=== PATIENT | male | born 1950 | race Caucasian/White ===

== ENCOUNTER → 2017-08-24 09:41 | Outpatient (CLI) | payer MEDICARE, BC ==
[2015-11-19 06:49] VITALS: BMI 21.6
[~2017-08-24 09:41] MED LIST: BAYER CHEWABLE81 MG PO; NORCO 5/325 TAB1 TA1 PO; NORVASC10 MG PO
== END | disposition home or self-care (01) ==
LOC: D.LAB 09:41
DX: N40.0 Benign prostatic hyperplasia without lower urinary tract symptoms (principal)

== ENCOUNTER 2017-09-20 05:45 | Day surgery (SDC) | payer MEDICARE, BC ==
[2017-09-18 08:51] LABS: HEMATOCRIT 37.2 % (42.0-54.0); HEMOGLOBIN 11.9 g/dL (13.5-17.5); MCH 26.2 pg (26.0-34.0); MCV 81.8 fL (80.0-100.0); MEAN PLATELET VOLUME 9.7 fL (7.4-10.4); RBC 4.55 10x6/uL (4.20-6.10); RDW 16.4 % (11.5-14.5); WBC 5.6 10x3/uL (4.8-10.8)
--- NOTE | ~2017-09-20 | OP ---
PATIENT NAME: JERMAIN GOTTLIEB MEDICAL RECORD: [id number] :50 LOCATION:D.OPS ADMISSION DATE: SURGEON: RAJAN THOMAS MD DATE OF OPERATION: 09/20/2017 SURGEON: Rajan Thomas MD ANESTHESIA: General anesthesia by Mukesh Bishop CRNA PREOPERATIVE DIAGNOSES: 1. Right hydrocele. 2. Elevated PSA 5.5. PROCEDURE: 1. Right hydrocelectomy by Jaboulay procedure. 2. Transrectal ultrasound and prostate biopsy. FINDINGS: Large right hydrocele with 400 mL of fluid evacuated. A 45 gram prostate with intraprostatic stones, no hypoechoic areas. SPECIMENS: 1. Prostate biopsy cores. 2. Right appendix testis. 3. Right hydrocele sac. CLINICAL HISTORY: This is a 67-year-old male, who is complaining of a large right hydrocele. He had this hydrocele developed after he had a right inguinal hernia repair by Dr. Lynch in 2013. In 2015, Dr. Lynch attempted to drain the hydrocele by putting a needle into it, but the fluid, probably reaccumulated. He comes now to have the hydrocele drained. It is hanging so low that when he sits on the toilet, it dips into the toilet water, which makes it a problem for him with hygiene. He also has an elevated PSA of 5.5. He was exposed to Agent [place] during the [place]. He does not have a family history of prostate cancer. On rectal examination he has an enlarged prostate, but no nodules were palpated. He comes today to have a prostate biopsy performed also. He has been taking prophylactic antibiotics at home and he also performed a Fleet enema last night. He is allergic to PENICILLIN and he was given Levaquin 500 mg IV organizational consultant to the OR. DESCRIPTION OF PROCEDURE: The patient was initially placed in supine position on the OR table. We did the hydrocele surgery first. He was then given induction of general anesthesia. He was shaved, prepped and draped. A median rhaphe incision about 3 cm long was made. We then went down to the dartos layer using the Bovie. Using a 15 blade, we went through the tunica vaginalis and started draining the hydrocele. The Arasuer suction tip was placed into the hydrocele sac to drain most of the fluid out. Metzenbaum scissors were then used to incise the full length of the tunica vaginalis. The remaining fluid was then evacuated using the Yankauer suction. The testicle was then everted out of its hemiscrotum. A prominent right appendix testis is noted. This was amputated at its base and sent to pathology as a specimen. This is to prevent any future torsion of the appendix testis from causing testicular pain. The excessively redundant tunica vaginalis was noted. The redundancy was trimmed off using a Bovie. Enough of the tunica vaginalis was left behind, so that it could be reapproximated behind the spermatic cord. This was done using a running 3-0 Vicryl. This constitutes the Jaboulay procedure. Any bleeding OPERATIVE REPORT [id number] JERMAIN GOTTLIEB points were cauterized extensively. If they did not stop bleeding with cautery, a [id number]-[id number] of 3-0 chromic was placed across the bleeding point. When no active bleeding was noted, the right testicle was placed back into its hemiscrotum. The dartos fascia was reapproximated using 3-0 running Vicryl. A 4-0 Monocryl was then used in simple interrupted fashion to reapproximate the skin. We then placed the scrotum into a blue towel and taped it up into the abdomen as much as possible. The patient was then moved down on the operating table and placed into dorsal lithotomy position. The next step was the prostate biopsy. The transrectal ultrasound probe was placed into the rectum. We obtained prostate size measurements. The approximate size of the prostate by our machine is 45 grams, but our machine tends to underestimate the size. On digital rectal examination, I would have said that it was closer to 60 grams. No hypoechoic areas were seen. Sextant biopsies were obtained with at least 3 cores from each sextant. Once the biopsy was completed, the dressing was applied to the scrotal incision. Fluffs and mesh panties were given to him. He was then awakened and brought to the recovery room. I will see him next week to review his pathology results with him. TRANSINT:[id number] Voice Confirmation ID: [id number] DOCUMENT ID: [id number] RAJAN THOMAS MD at 1315 CC: [id number] DICTATION DATE: 09/20/17924 GOLF TOURNAMENT CONSULTANT: 09/20/17 1150 REG [facility] [address] [place], [id number]
[2017-09-20 06:15] VITALS: BP 129/86; BMI 26.2
== END 2017-09-20 10:55 | disposition home or self-care (01) ==
LOC: D.OPS 05:45 → D.PAN 07:30 → D.OPS 08:15 → D.PAN 08:15 → D.OPS 10:55
PROVIDERS: Anesthesiology
DX: N43.3 Hydrocele, unspecified (principal); R97.20 Elevated prostate specific antigen [PSA]; I10 Essential (primary) hypertension; Z01.812 Encounter for preprocedural laboratory examination

== ENCOUNTER 2017-09-23 13:10 | Emergency (ER) | payer MEDICARE, BC ==
[2017-09-23 14:44] LABS: APPEARANCE CLOUDY (CLEAR); COLOR YELLOW (YELLOW)
[2017-09-23 14:45] LABS: AMORPHOUS SEDIMENT >1+ /lpf (NONE SEEN); BACTERIA FEW /hpf (NONE SEEN); BILIRUBIN NEGATIVE (NEGATIVE); EPITHELIAL CELLS 0-5 /hpf (0-5); GLUCOSE NEGATIVE (NEGATIVE); KETONE NEGATIVE (NEGATIVE); MUCUS >1+ /lpf (NONE SEEN); NITRITE NEGATIVE (NEGATIVE); PROTEIN TRACE mg/dL (NEGATIVE); UROBILINOGEN NORMAL (NORMAL); WHITE CELLS - URINE >50 /hpf (0-5)
== END 2017-09-23 15:15 | disposition home or self-care (01) ==
LOC: D.ER 13:10
PROVIDERS: Family Medicine
DX: R33.9 Retention of urine, unspecified (principal); I10 Essential (primary) hypertension

== ENCOUNTER → 2018-05-29 18:18 | Outpatient (CLI) | payer MEDICARE ==
[~2018-05-29 18:18] MED LIST changes: +FLOMAX0.4 MG PO; +PROSCAR5 MG PO
== END | disposition home or self-care (01) ==
LOC: D.LABREF 18:18
DX: R31.0 Gross hematuria (principal); D72.829 Elevated white blood cell count, unspecified

== ENCOUNTER 2018-06-27 08:10 | Inpatient (IN) | payer MEDICARE, OTHER ==
[2018-06-26 10:03] LABS: HEMATOCRIT 31.7 % (42.0-54.0); HEMOGLOBIN 9.6 g/dL (13.5-17.5); MCH 22.6 pg (26.0-34.0); MCHC 30.3 g/dL (31.0-37.0); MCV 74.6 fL (80.0-100.0); MEAN PLATELET VOLUME 9.3 fL (7.4-10.4); RBC 4.25 10x6/uL (4.20-6.10); RDW 16.6 % (11.5-14.5); WBC 6.3 10x3/uL (4.8-10.8)
[2018-06-27] VITALS (7 sets, daily range): BP systolic 100–136; BP diastolic 67–84; BMI 22.6
[~2018-06-27] VITALS: Ht 180.3 cm; Wt 73.6 kg
--- NOTE | ~2018-06-27 | OP ---
PATIENT NAME: JERMAIN GOTTLIEB MEDICAL RECORD: [id number] :50 LOCATION:D.MS [facility]2225 ADMISSION DATE:06/27/18 SURGEON: NATHAN THOMAS MD DATE OF OPERATION: 06/27/2018 SURGEON: Nathan Thomas MD ANESTHESIA: General anesthesia by Trish Cruz CRNA PREOPERATIVE DIAGNOSES: Gross hematuria, bladder tumor approximately 7 cm on the left lateral wall. PROCEDURES: Cystoscopy, transurethral resection of bladder tumor. FINDINGS: Large trilobar hyperplasia of the prostate. Large bladder tumor on the left lateral wall about 7 cm in diameter. Single ureteral orifices bilaterally. SPECIMENS: Bladder tumor. BLOOD LOSS: Difficult to estimate, but the preoperative hemoglobin was 9.6. Intraoperative hemoglobin was 8.5. CLINICAL HISTORY: The patient will be receiving 2 units of packed red blood cells in transfusion. CLINICAL HISTORY: This is a 68-year-old male, whom I saw initially in September of this year for a right hydrocelectomy. He also had an elevated PSA and a prostate biopsy was obtained. The prostate size was measured at 45 grams and the prostate biopsy was benign. Since that time, he has been complaining of episodes of gross hematuria. His family physician treated him with oral antibiotics for a possible UTI. He has had continuous episodes of bleeding. He has been on finasteride and tamsulosin since September 2017 to treat BPH. He has never smoked, but he was exposed to Agent [place] in [place]. He comes today to have cystoscopy with either a transurethral resection of the prostate or transurethral resection of a bladder tumor. I do know that he has not had a CT scan done yet and I will order one while he is in the hospital. HE IS ALLERGIC TO PENICILLIN. He was given Levaquin IV nutrition services aide to the OR. DESCRIPTION OF PROCEDURE: The patient was given induction of general anesthetic. He was placed in dorsal lithotomy position and prepped and draped. A 21-Cook Islander cystoscope with 30-degree lens was used for visualization. The penile urethra shows no strictures or tumors. The prostate is quite obstructive with the lateral lobes meeting in the midline. It is also was somewhat large, but not obstructed median lobe. Immediately entering into the bladder neck, I could see this large tumor, which is almost spherical on the left lateral wall. Looking carefully, we could see the ureteral orifice close to the bottom of the tumor. The left ureteral orifice was not directly affected by the tumor. The right ureteral orifice is intact. No other tumors were seen elsewhere. The tumor is calcified and some of the calcification has fallen off into the bladder as bladder stones. I attempted to place a left ureteral stent. However, I could not get the guidewire to enter into the left ureter even with the use of an open-ended ureteral catheter. Therefore, I abandoned further attempts to do this. We switched over to the bipolar resectoscope. Normal saline was used for irrigation. I started from the top of the tumor and worked my way posteriorly. OPERATIVE REPORT [id number] JERMAIN GOTTLIEB I asked our anesthesia colleague to paralyze the patient as I did not wish to trigger the obturator reflex. This was especially important with the tumor being on the lateral wall. The tumor was extremely vascular. Every time I resected, we encountered vigorous arterial bleeding. As I resected, large tumor specimens were removed from the bladder using an Ellik evacuator. Eventually, all the visible tumor was resected. The tumor has a very gritty feeling, and I suspect it may be invasive. At the end of the procedure, whatever arterial bleeding I could see was cauterized using the resectoscope. There is a small perforation of the posterior dome of the bladder where I had been resecting, I could not see in that area because of the mass of the tumor. This should heal spontaneously. I looked for the left ureteral orifice, but I was unable to find it. After removing any small remaining bladder tumor specimens from the bladder using the Ellik evacuator, one final look revealed no further specimens floating around. The scope was removed. A 20-Cook Islander 3-way Camacho catheter was then inserted into the bladder and the balloon was inflated with 10 mL of sterile water. Continuous bladder irrigation with normal saline was started. The patient will be admitted to the hospital for this. I will order a blood transfusion for 2 units of packed red blood cells tonight. Tomorrow, he will have a CT scan of the chest, abdomen and pelvis with IV contrast for metastatic workup. He will also have a whole body bone scan for metastatic workup. TRANSINT:[id number] Voice Confirmation ID: [id number] DOCUMENT ID: [id number] NATHAN THOMAS MD at 0932 CC: [id number] DICTATION DATE: 06/27/181902 IGNITION EXPERT: 06/28/18 0134 ADM IN [facility] [address] [id number]
--- NOTE | ~2018-06-27 | MORECARE ---
CASE MANAGEMENT DISCHARGE SUMMARY PATIENT: JERMAIN GOTTLIEB UNIT: [id number] ADM DATE: 06/27/18 AGE: 68 : 50 SEX: M ROOM/BED: D.2225 AUTHOR: JUAN RAMON FERGUSON PHYSICIAN: REFERRING PHYSICIAN: RAJAN THOMAS MD DATE OF SERVICE: 07/02/18 Discharge Plan Patient Name: JERMAIN GOTTLIEB [facility] [facility] 1950 Planned Disposition: Anticipated Discharge Date: Discharge Date: 06/29/2018 Expected LOS: 0 Initial Reviewer: [email or web address] Initial Review Date: 07/02/2018 Generated: 07/02/18 9:53 am Comments DCP- Discharge Planning Updated by [email or web address]: Becca Mcgovern on 06/28/18 1:[address] CM went to room to meet with patient to discuss discharge planning. He has many visitors in his room and asked me to return at a later time. Patient Name: JERMAIN GOTTLIEB Page [id number] at 0853 All edits/amendments must be made on the electronic document DICTATION DATE: 07/02/18851 TECHNICAL ILLUSTRATIONS MAP INKER: CALI 07/02/18851 RPT#: [id number] DC DATE:06/29/18 STATUS: DIS IN [facility] [address] [place] [address] END OF REPORT
[2018-06-27 18:24] LABS: HEMATOCRIT 28.1 % (42.0-54.0); HEMOGLOBIN 8.5 g/dL (13.5-17.5)
[2018-06-28] VITALS (10 sets, daily range): BP systolic 102–118; BP diastolic 67–78; Ht 180.3 cm; Wt 73.6 kg
[2018-06-28 10:34] LABS: BASOPHILS 0.1 % (0-2); EOSINOPHILS 0 % (0-7); HEMOGLOBIN 9.6 g/dL (13.5-17.5); IMMATURE GRANULOCYTES 0.4 % (0-5); LYMPHOCYTES 4.2 % (15-50); MCH 23.1 pg (26.0-34.0); MCV 74.7 fL (80.0-100.0); MEAN PLATELET VOLUME 9.4 fL (7.4-10.4); MONOCYTES 5.4 % (2-11); NEUTROPHILS 89.9 % (40-80); PLATELET COUNT 430 10x3/uL (130-400); RBC 4.15 10x6/uL (4.20-6.10); RDW 16.9 % (11.5-14.5); WBC 13.7 10x3/uL (4.8-10.8)
[2018-06-28 10:46] LABS: CALCIUM 8.2 mg/dL (8.5-10.1); CREATININE - SERUM 1.5 mg/dL (0.6-1.3)
[2018-06-29 00:27] VITALS: BP 107/74
[2018-06-29 04:50] VITALS: BP 110/71
[2018-06-29 09:30] VITALS: BP 113/74
[2018-06-29 12:07] VITALS: BP 113/72
== END 2018-06-29 15:05 | disposition home or self-care (01) | DRG 670 ==
LOC: D.OPS 08:10 → D.PAN 08:45 → D.OPS 10:15 → D.PAN 10:15 → D.OPS 11:15 → D.PAN 11:15 → D.MS 19:46 → D.OPS 19:47 → D.MS 19:58
PROVIDERS: Anesthesiology; Urology
PROC: 0TBB8ZX Excision of Bladder, Via Natural or Artificial Opening Endoscopic, Diagnostic (ICD-10-PCS; principal; 2018-06-27 10:15)
DX: D49.4 Neoplasm of unspecified behavior of bladder (principal)

== ENCOUNTER 2018-10-03 06:50 | Day surgery (SDC) | payer MEDICARE, OTHER ==
[2018-10-01 13:42] LABS: BASOPHILS 1.3 % (0-2); EOSINOPHILS 5.1 % (0-7); HEMATOCRIT 39.3 % (42.0-54.0); HEMOGLOBIN 12.7 g/dL (13.5-17.5); IMMATURE GRANULOCYTES 0.2 % (0-5); MCH 25.1 pg (26.0-34.0); MCHC 32.3 g/dL (31.0-37.0); MCV 77.8 fL (80.0-100.0); MEAN PLATELET VOLUME 10.5 fL (7.4-10.4); MONOCYTES 12.4 % (2-11); PLATELET COUNT 390 10x3/uL (130-400); RBC 5.05 10x6/uL (4.20-6.10); RDW 18.8 % (11.5-14.5); WBC 6.3 10x3/uL (4.8-10.8)
[2018-10-01 13:53] LABS: APTT 27.7 SECONDS (22.8-39.4); INR 1.02 (0.85-1.17); PROTIME 12.9 SECONDS (11.6-15.0)
[~2018-10-03] VITALS: Ht 510.5 cm; Wt 72.1 kg
[2018-10-03 08:46] VITALS: BP 124/83; Ht 510.5 cm; Wt 72.1 kg
--- NOTE | 2018-10-03 12:40 | NUR ---
SITTING UP IN BED EATING FL TRAY. FAMILY AT BEDSIDE. WANTS A LEG BAG FOR FULLER CATHETER SO HE CAN GET AROUND, NO C/O VOICED.
--- NOTE | 2018-10-03 13:10 | NUR ---
TOLERATED FL TRAY. IV DC'D WITH CATHETER INTACT. FULLER CATHETER CHANGED TO LEG BAG. FULLER CARE INSTRUCTIONS GIVEN TO PT. VERBALIZED UNDERSTANDING.
--- NOTE | 2018-10-03 13:30 | NUR ---
WRITTEN AND VERBAL DC INST. GIVEN TO PT ALONG WITH RX. VERBALIZED UNDERSTANDING.
--- NOTE | 2018-10-03 13:33 | OP ---
PATIENT NAME: JERMAIN GOTTLIEB MEDICAL RECORD: [id number] :50 LOCATION:D.OPS ADMISSION DATE: SURGEON: NATHAN THOMAS MD DATE OF OPERATION: 10/03/2018 SURGEON: Nathan Thomas MD ANESTHESIA: General anesthesia by Jacques Platt CRNA DIAGNOSIS: A 2 cm left lateral wall bladder tumor. PROCEDURE: Cystoscopy, transurethral resection of bladder tumor. FINDINGS: A 2 cm papillary bladder tumor with calcifications on the left lateral wall of the bladder. SPECIMENS: Bladder tumor. ESTIMATED BLOOD LOSS: Minimal. CLINICAL HISTORY: This is a 68-year-old male, who has never smoked. However, he was exposed to Agent [place] while he was serving in [employer]. He presented with gross hematuria at the end of last year and I resected a large papillary bladder tumor of 10 cm diameter on the left lateral wall of the bladder. I would also perform the metastatic workup on him while he was in the hospital and it was negative. The pathology showed that he had a low-grade noninvasive transitional cell carcinoma. He comes today to have a surveillance cystoscopy. Due to the large size of his previous tumor, I expect that there will probably be a recurrence. Therefore, he has given consent for bladder tumor resection. HE IS ALLERGIC TO PENICILLIN. I gave him Levaquin IV concrete gun operator to the OR. DESCRIPTION OF PROCEDURE: The patient was initially given an LMA. He was prepped and draped after being placed in lithotomy position. A 21-Moroccan cystoscope with 30-degree lens was used for visualization. Penile urethra shows no tumors or strictures. The prostatic urethra shows bilateral lateral lobe obstruction. Going into the bladder, he has single ureteral orifices on each side. I found some small calcifications free in the bladder. As I looked to the site of the previous resection on the left lateral wall, I found the tumor recurrence, which has calcifications on it. No other tumors were seen in the bladder. As the tumor is on the left lateral wall and resection is likely to trigger the obturator nerve reflex, I asked for general anesthesia with muscle paralysis. Thus the patient was converted to general anesthetic with muscle paralysis and I converted to a bipolar resectoscope. The tumor was fully resected. The tumor specimens were removed using the [employer] evacuator. At the end of the procedure, no bleeding was seen. We inserted a 22-Moroccan 3-way Camacho catheter into the bladder. The drainage is quite clear. The balloon was inflated with 10 cc of sterile water. The catheter inflow port was plugged using a catheter plug. The patient will be going home with a Camacho catheter. I will see him next week to remove the Camacho catheter. Due to the propensity of this tumor to recur, I will refer him to an oncologist, Dr. Ly, to have intravesical gemcitabine started. TRANSINT:[id number] Voice Confirmation ID: [id number] DOCUMENT ID: [id number] OPERATIVE REPORT [id number] JERMAIN GOTTLIEB, NATHAN Vega MD at 1333 CC: [id number] DICTATION DATE: 10/03/18 1146 MANAGER INTERNAL: 10/03/18 1236 REG [facility] [address] [place] [address]
--- NOTE | 2018-10-03 13:45 | NUR ---
DC'D HOME WITH FAMILY VIA PRIVATE VEHICLE. TAKEN TO VEHICLE VIA WC. STABLE AT TIME OF DC.
== END 2018-10-03 13:45 | disposition home or self-care (01) ==
LOC: D.OPS 06:50 → D.PAN 10:00 → D.OPS 10:00 → D.PAN 10:40 → D.OPS 13:45 → D.PAN 14:00
PROVIDERS: Anesthesiology; ATTEND Urology
DX: D30.3 Benign neoplasm of bladder (principal)

== ENCOUNTER 2019-02-11 08:30 | Day surgery (SDC) | payer MEDICARE, OTHER ==
[2019-02-10 10:21] LABS: ANION GAP 14.4 mmol/L (8-16); CALCIUM 9.2 mg/dL (8.5-10.1); CARBON DIOXIDE 25.4 mmol/L (21.0-32.0); CREATININE - SERUM 1.2 mg/dL (0.6-1.3); POTASSIUM - SERUM 3.8 mmol/L (3.5-5.1)
[2019-02-10 10:24] LABS: INR 1.09 (0.85-1.17); PROTIME 13.6 SECONDS (11.6-15.0)
[2019-02-10 10:25] LABS: APTT 27.2 SECONDS (22.8-39.4)
[2019-02-10 10:26] LABS: HEMATOCRIT 36.9 % (42.0-54.0); HEMOGLOBIN 11.9 g/dL (13.5-17.5); MCH 26.7 pg (26.0-34.0); MCHC 32.2 g/dL (31.0-37.0); MCV 82.9 fL (80.0-100.0); MEAN PLATELET VOLUME 9.6 fL (7.4-10.4); NEUTROPHILS 76.2 % (40-80); PLATELET COUNT 355 10x3/uL (130-400); RBC 4.45 10x6/uL (4.20-6.10); RDW 17.5 % (11.5-14.5); WBC 7.6 10x3/uL (4.8-10.8)
[~2019-02-11] VITALS: Ht 180.3 cm; Wt 69.9 kg
[2019-02-11 10:17] VITALS: BP 126/86; Ht 180.3 cm; Wt 69.9 kg
--- NOTE | 2019-02-11 12:32 | NUR ---
1225 DR. MARTHA HAMPTON. 1230 REQUESTS LEG BAG FOR HOME USE.
--- NOTE | 2019-02-11 14:13 | OP ---
PATIENT NAME: JERMAIN GOTTLIEB MEDICAL RECORD: [id number] :50 LOCATION:D.OPS ADMISSION DATE: SURGEON: NATHAN THOMAS MD DATE OF OPERATION: 02/11/2019 SURGEON: Nathan Thomas MD. ANESTHESIA: TIVA by Boris Reese CRNA. DIAGNOSES: History of bladder cancer, bladder outlet obstruction due to benign prostatic hypertrophy. PROCEDURE: UroLift times 6 units. FINDINGS: No bladder tumors were seen. Single ureteral orifices bilaterally. Long obstructive lateral lobes of the prostate without any median lobe. BLOOD LOSS: Minimal. CLINICAL HISTORY: This is a 69-year-old male, who has recurrent low-grade papillary bladder cancer. This was last treated with intravesical gemcitabine chemotherapy. He requires surveillance cystoscopy for bladder cancer. In the meantime, he has obstructive voiding symptoms including a slow urinary flow with nocturia times 3-4. Previous cystoscopy showed bilateral lateral lobe obstruction. His PSA was 5.5 and his prostate biopsy showed a 45-gram prostate. Prostate pathology was benign. His IPSS score is 13 and his quality of life score is 3 on finasteride and tamsulosin, which he has been on for over a year. He wishes to have the UroLift procedure done at the time of bladder cancer surveillance. HE IS ALLERGIC TO PENICILLIN. He was given Ancef franchise consultant to the OR. DESCRIPTION OF PROCEDURE: The patient was given IV sedation. He was then prepped and draped. It should be noted that he has a large recurrent right hydrocele, which we saw when he was being prepped. Initially, I used a 17-Argentine 30-degree lens cystoscope. The findings are as outlined above. We then switched to the UroLift cystoscope. At 1.5 cm distal to the bladder neck, we placed our first units, 1 on each side at the anterolateral sulcus. Then, we went to the verumontanum where 2 more units were placed, one on each side at the anterolateral sulcus. Looking in with the visual obturator, we noted that there was still obstruction in the middle of the prostate. At the mid prostatic level, we put 1 unit on each side at the mid urethral level. Now we had a nice open urethral channel. A total of 6 units were implanted. The scope was then removed. I inserted a 16-Argentine 2-way Camacho catheter into the bladder. The balloon was inflated with 10 cc of sterile water. This will allow the gross hematuria from the procedure as well as possible urinary retention from tissue swelling afterwards to prevent this from forming. He will go home with a Camacho catheter to a leg bag. I will see him in followup in 1 weeks' time for a voiding trial. TRANSINT:[id number] Voice Confirmation ID: [id number] DOCUMENT ID: [id number] OPERATIVE REPORT [id number] JERMAIN GOTTLIEB, NATHAN Vega MD at 1413 CC: [id number] DICTATION DATE: 02/11/19 1218 ENVIRONMENTAL SERVICES TECHNICIAN: 02/11/19 1229 [facility] 02/11/19 [id number] [place] [address]
== END 2019-02-11 13:30 | disposition home or self-care (01) ==
LOC: D.OPS 08:30 → D.PAN 08:50 → D.OPS 08:50
PROVIDERS: Anesthesiology; ATTEND Urology
DX: N40.1 Benign prostatic hyperplasia with lower urinary tract symptoms (principal); N13.8 Other obstructive and reflux uropathy; Z85.51 Personal history of malignant neoplasm of bladder; Z88.0 Allergy status to penicillin; Z01.812 Encounter for preprocedural laboratory examination

== ENCOUNTER → 2019-02-19 18:35 | Outpatient (CLI) | payer MEDICARE, OTHER ==
[2019-02-11 10:17] VITALS: BMI 21.5
== END | disposition home or self-care (01) ==
LOC: D.LABREF 18:35
PROVIDERS: ATTEND Urology
DX: N39.0 Urinary tract infection, site not specified (principal)

== ENCOUNTER → 2019-04-11 17:01 | Outpatient (CLI) | payer MEDICARE, OTHER ==
[2019-02-11 10:17] VITALS: BMI 21.5
== END | disposition home or self-care (01) ==
LOC: D.LABREF 17:01
PROVIDERS: ATTEND Urology
DX: R31.9 Hematuria, unspecified (principal); D72.819 Decreased white blood cell count, unspecified

== ENCOUNTER → 2019-04-28 13:48 | Outpatient (CLI) | payer MEDICARE, OTHER ==
[2019-02-11 10:17] VITALS: BMI 21.5
== END | disposition home or self-care (01) ==
LOC: D.LABREF 13:48
PROVIDERS: ATTEND Urology
DX: Z00.00 Encounter for general adult medical examination without abnormal findings (principal)

== ENCOUNTER → 2019-05-14 20:33 | Outpatient (CLI) | payer MEDICARE, OTHER ==
[2019-02-11 10:17] VITALS: BMI 21.5
== END | disposition home or self-care (01) ==
LOC: D.LABREF 20:33
PROVIDERS: ATTEND Urology
DX: Z00.00 Encounter for general adult medical examination without abnormal findings (principal)

== ENCOUNTER → 2020-03-03 20:43 | Outpatient (CLI) | payer MEDICARE, OTHER ==
[2019-09-09 12:54] VITALS: BMI 22.2
== END | disposition home or self-care (01) ==
LOC: D.LABREF 20:43
PROVIDERS: ATTEND Urology
DX: R82.90 Unspecified abnormal findings in urine (principal)